=== PATIENT | male | born 1945 | race Caucasian/White ===

== ENCOUNTER 2018-06-09 14:53 | Outpatient (REF) | payer MEDICARE, SELFPAY ==
[2018-06-09 22:29] LABS: Anion Gap 10.6 mmol/L (3-11); BUN 59 mg/dL (7-18); CO2 26.4 mmol/L (21.0-32.0); CREATININE 2.52 mg/dL (0.70-1.30); Calcium 9.3 mg/dL (8.5-10.1); Chloride 104 mmol/L (98-107); Estimated GFR 25.14 (mL/min/1.73m2); Glucose 224 mg/dL (70-100); Potassium 4.6 mmol/L (3.5-5.1); Sodium 141 mmol/L (136-145)
== END 2018-06-09 14:54 ==
LOC: NCHCN 14:53
PROVIDERS: PCP Nurse Practitioner Family; Visit Provider Nurse Practitioner Family
DX: E11.9 Type 2 diabetes mellitus without complications (principal); N18.4 Chronic kidney disease, stage 4 (severe); I50.20 Unspecified systolic (congestive) heart failure
CPT/HCPCS: 80048

== ENCOUNTER 2019-11-15 15:33 | Outpatient (REF) | payer MEDICARE, SELFPAY ==
[2019-11-15 22:37] LABS: Abs Immature Grans 0.02 k/cumm (0.0-0.09); Absolute Basophil Count 0.02 k/cumm (0.0-0.2); Absolute Eosinophil Count 0.25 k/cumm (0.0-0.7); Absolute Lymphocyte Count 1.04 k/cumm (1.2-3.4); Absolute Neutrophil Count 8.37 k/cumm (1.2-6.7); Basophils % 0.2; Eosinophils % 2.3; HCT 35.7 % (40.0-50.0); HGB 11.1 g/dL (13.5-17.5); Immature Grans % 0.2 %; Lymphocytes % 9.6; Mean Corp. HGB Concentration 31.1 g/dL (32.0-36.0); Mean Corpuscular Volume 96.5 fL (80-95); Mean Platelet Volume 12.1 fL (8.0-11.0); Monocytes % 10.2; Neutrophils % 77.5; Platelet Count 202 x1000/uL (130-400); RBC Distribution Width 13.8 % (11.8-14.1)
[2019-11-15 22:41] LABS: Anion Gap 9.1 mmol/L (3-11); BUN 57 mg/dL (7-18); CO2 29.9 mmol/L (21.0-32.0); CREATININE 2.32 mg/dL (0.70-1.30); Calcium 9.2 mg/dL (8.5-10.1); Chloride 107 mmol/L (98-107); Estimated GFR 27.58 (mL/min/1.73m2); Glucose 175 mg/dL (74-106); Potassium 4.7 mmol/L (3.5-5.1); Sodium 146 mmol/L (136-145)
[2019-11-15 22:53] LABS: Hemoglobin A1C 7.8 % (3.8-5.6)
== END 2019-11-15 15:53 ==
LOC: NCHCN 15:33
PROVIDERS: PCP Nurse Practitioner Family; Visit Provider Registered Nurse
DX: E11.40 Type 2 diabetes mellitus with diabetic neuropathy, unspecified (principal); R60.9 Edema, unspecified
CPT/HCPCS: 80048; 83036; 85025

== ENCOUNTER 2019-11-23 13:11 | Outpatient (REF) | payer MEDICARE, SELFPAY ==
[2019-11-23 21:12] LABS: ESR 55 mm/hr (1-20)
[2019-11-23 21:17] LABS: Anion Gap 9.5 mmol/L (3-11); BUN 60 mg/dL (7-18); CO2 28.5 mmol/L (21.0-32.0); CREATININE 2.57 mg/dL (0.70-1.30); Calcium 8.8 mg/dL (8.5-10.1); Chloride 106 mmol/L (98-107); Estimated GFR 24.51 (mL/min/1.73m2); Glucose 214 mg/dL (74-106); Magnesium 1.6 mg/dL (1.8-2.4); Potassium 4.6 mmol/L (3.5-5.1); Sodium 144 mmol/L (136-145); Vitamin B12 504 pg/mL (193-986)
[2019-11-23 21:30] LABS: C-Reactive Protein 0.97 mg/dL (0.0-0.3)
== END 2019-11-23 13:31 ==
LOC: NCHCN 13:11
PROVIDERS: PCP Nurse Practitioner Family; Visit Provider Nurse Practitioner Family
DX: E11.9 Type 2 diabetes mellitus without complications (principal); E11.621 Type 2 diabetes mellitus with foot ulcer; I10 Essential (primary) hypertension; N18.4 Chronic kidney disease, stage 4 (severe); G20 Parkinson's disease; M79.671 Pain in right foot; Z51.81 Encounter for therapeutic drug level monitoring
CPT/HCPCS: 80048; 85652; 87077; 82607; 83735; 86140; 87070; 87186; 87205